=== PATIENT | male | born 1970 ===

== ENCOUNTER → 2017-10-26 13:33 | Outpatient (CLI) | payer OTHER ==
[~2017-10-26] VITALS: Ht 182.9 cm; Wt 97.1 kg
== END | disposition home or self-care (01) ==
LOC: PPHC 13:33
DX: R42 Dizziness and giddiness (principal); E10.9 Type 1 diabetes mellitus without complications

== ENCOUNTER 2017-10-26 17:18 | Emergency (ER) | payer OTHER ==
[~2017-10-26] VITALS: Ht 182.9 cm; Wt 81.6 kg
== END 2017-10-26 21:16 | disposition home or self-care (01) ==
LOC: ER 17:18
DX: R42 Dizziness and giddiness (principal)

== ENCOUNTER 2018-03-09 12:10 | Emergency (ER) | payer OTHER ==
[~2018-03-09] VITALS: Ht 182.9 cm; Wt 93.0 kg
[2018-03-09] MEDS ORDERED: METFORMIN HCL500 MG (12:15)
== END 2018-03-09 15:14 | disposition home or self-care (01) ==
LOC: ER 12:10
DX: S00.83XA Contusion of other part of head, initial encounter (principal); S20.221A Contusion of right back wall of thorax, initial encounter; W18.39XA Other fall on same level, initial encounter; Y93.89 Activity, other specified; Y92.89 Other specified places as the place of occurrence of the external cause; Y99.8 Other external cause status

== ENCOUNTER 2018-03-18 12:11 | Outpatient (CLI) | payer OTHER ==
[~2018-03-18 12:11] MED LIST: METFORMIN HCL500 MG
== END 2018-03-18 12:19 | disposition home or self-care (01) ==
LOC: RAD 12:11
DX: R07.89 Other chest pain (principal)

== ENCOUNTER → 2019-11-03 10:24 | Outpatient (CLI) | payer OTHER | END | disposition home or self-care (01) | LOC: LAB 10:24 | DX: M54.5 Low back pain (principal); M54.6 Pain in thoracic spine; E11.65 Type 2 diabetes mellitus with hyperglycemia; Z12.11 Encounter for screening for malignant neoplasm of colon; Z13.5 Encounter for screening for eye and ear disorders; Z73.6 Limitation of activities due to disability ==

== ENCOUNTER 2020-07-30 05:38 | Day surgery (SDC) | payer OTHER ==
[2020-07-30] MEDS ORDERED: SURFAK240 M1 PO (09:17)
[2020-07-30] MEDS ORDERED: PROTONIX40 MG PO (09:17)
[2020-07-30] MEDS ORDERED: ULTRACET PO (09:17)
[2020-07-30] MEDS ORDERED: KEFLEX500 MG PO (09:17)
== END 2020-07-30 11:50 | disposition home or self-care (01) ==
LOC: CIR.AMB 05:38
PROVIDERS: ATTEND Surgery
DX: K42.0 Umbilical hernia with obstruction, without gangrene (principal); Z20.828 Contact with and (suspected) exposure to other viral communicable diseases